=== PATIENT | female | born 1975 | race Hispanic/Latino ===

== ENCOUNTER 2024-03-27 07:01 | Inpatient (IN) | payer BC ==
[2024-03-27] MEDS ORDERED: Heparin 5,000 UNITS/ML VIAL ONE (08:14)
[2024-03-27] MEDS ORDERED: Sodium Chloride 0.9% 100 ML ONE (08:15)
[2024-03-27] MEDS ORDERED: CEFAZOLIN 2 GM VIAL ONE (08:15)
[2024-03-27] MEDS ORDERED: Scopolamine 1 mg/72 hour Patch ONE (08:52)
[2024-03-27] MEDS ORDERED: EPINEPHrine 1 MG/ML VIAL ONE (09:05)
[2024-03-27] MEDS ORDERED: Bupivacaine 0.25% HCL 30 ML VIAL ONE (09:05)
[2024-03-27] MEDS ORDERED: Ondansetron PF 4 MG/2 ML Vial ONE (09:23)
[2024-03-27] MEDS ORDERED: fentaNYL PF 100 MCG/2 ML SYRINGE ONE (09:23)
[2024-03-27] MEDS ORDERED: Lidocaine 1% PF 5 ML VIAL ONE (09:23)
[2024-03-27] MEDS ORDERED: PROPOFOL 20 ML ONE (09:23)
[2024-03-27] MEDS ORDERED: HYDROmorphone 2 MG/ML VIAL ONE (09:23)
[2024-03-27] MEDS ORDERED: Rocuronium Bromide 10 MG/ML (10ML VIAL) ONE (09:23)
[2024-03-27] MEDS ORDERED: Midazolam HCl 2 mg/2 ml Vial ONE (09:24)
[2024-03-27] MEDS ORDERED: PHENYLEPHRINE-NS 100 MCG/ML 10 ML SYRINGE ONE (09:45)
[2024-03-27] MEDS ORDERED: Dexamethasone 20 MG/5 ML VIAL ONE (09:48)
[2024-03-27] MEDS ORDERED: Labetalol HCl 100 MG/20 ML VIAL ONE ×2 (09:48→10:04)
[2024-03-27] MEDS ORDERED: SUGAMMADEX SODIUM 200 MG/2 ML VIAL ONE (10:00)
[2024-03-27] MEDS ORDERED: Glucagon 1 MG/ML KIT IM PRN (10:35)
[2024-03-27] MEDS ORDERED: Promethazine HCl 25 MG/ML VIAL IM PRN ×2 (10:35→11:00)
[2024-03-27] MEDS ORDERED: hydrALAZINE 20 MG/ML VIAL SLOW IVP PRN (10:35)
[2024-03-27] MEDS ORDERED: Dextrose 5% in Water 1,000 ML IV PRN (10:35)
[2024-03-27] MEDS ORDERED: Ondansetron PF 4 MG/2 ML Vial IVP PRN ×2 (10:35→10:47)
[2024-03-27] MEDS ORDERED: Ipratropium/Albuterol 3 ML NEB NEB PRN (10:35)
[2024-03-27] MEDS ORDERED: diphenhydrAMINE 50 MG/ML VIAL IVP PRN ×2 (10:35→10:47)
[2024-03-27] MEDS ORDERED: Dextrose 50% Abboject 50 ML SYRINGE SLOW IVP PRN (10:35)
[2024-03-27] MEDS ORDERED: FENTANYL 500 MCG/10 ML VIAL 2,000 MCG in Sodium Chloride 0.9% 60 ML IV PRN (10:47)
[2024-03-27] MEDS ORDERED: diphenhydrAMINE 50 MG/ML VIAL IM PRN (10:47)
[2024-03-27] MEDS ORDERED: diphenhydrAMINE 25 MG CAP PO PRN (10:47)
[2024-03-27] MEDS ORDERED: Ondansetron HCl/PF 4 MG/2 ML Vial IVP PRN (10:47)
[2024-03-27] MEDS ORDERED: Naloxone HCl 0.4 mg/ml Vial IV PRN (10:47)
[2024-03-27] MEDS ORDERED: HYDROmorphone 2 MG/ML VIAL SLOW IVP PRN (11:00)
[2024-03-27] MEDS ORDERED: ACTIVE PCA FS PRN (11:00)
[2024-03-27] MEDS: 1/2 NS w/Potassium 20 mEq 1,000 ML IV SCH (14:53)
[2024-03-27 15:34] VITALS: BMI 38.3
[2024-03-27] MEDS: CEFAZOLIN 2 GM in Sodium Chloride 0.9% 100 ML IVPB SCH (15:48)
[2024-03-27] MEDS: Insulin Lispro 100 UNIT/ML 10 ML VIAL SC PRN (17:38)
[2024-03-27] MEDS: Atorvastatin Calcium 40 MG TAB PO SCH (21:02)
[2024-03-27] MEDS: Insulin Glargine 30 UNITS/0.3 ML VIAL SC SCH (21:02)
[2024-03-28 05:40] LABS: #Basophils Less than 0.03 10x3/uL (0.0-0.2); #Eosinphils Less than 0.03 10x3/uL (0.0-0.7); %Basophils 0.1 % (0.0-1.0); %Lymphocytes 10.2 % (21.0-51.0); %Neutrophils 85.3 % (42.0-75.0); Hematocrit 41.3 % (36.0-47.0); Hemoglobin 14.7 g/dL (12.0-16.0); Mean Corpuscular HGB CONC 35.6 g/dL (32.0-36.0); Mean Corpuscular Hemoglobin 30.2 pg (27.0-31.0); Mean Platelet Volume 12.1 fL (7.4-10.4); Platelet Count 261 10x3/uL (130-400); RBC Distribution Width 11.9 % (11.5-14.5); Red Blood Cell (RBC) Count 4.86 mill/uL (4.20-5.40)
[2024-03-28 05:54] LABS: Anion Gap 12 mmol/L (10-20); BUN (Urea Nitrogen) 15 mg/dL (7.0-18.7); Calc. Creatinine Clearance 113 mL/min (70-130); Carbon Dioxide 24 mmol/L (22-29); Chloride 103 mmol/L (98-107); Estimated GFR 87; Glucose 271 mg/dL (70-105); Potassium 4.1 mmol/L (3.5-5.1); Sodium 135 mmol/L (136-145)
[2024-03-28] MEDS ORDERED: Hydrocodone-Acetamin 15 ML UDCUP PO PRN (06:05)
[2024-03-28] MEDS: Losartan 25 MG TAB PO SCH (09:44)
[2024-03-28] MEDS: Hydrochlorothiazide 25 MG TAB PO SCH (09:45)
[2024-03-28] MEDS: Pantoprazole 40 MG VIAL IVP SCH (09:45)
[2024-03-28] MEDS: Enoxaparin 40 MG (0.4 mL) SYRINGE SC SCH (09:45)
[2024-03-28] MEDS: Amlodipine 10 MG TAB PO SCH (09:45)
[2024-03-28] MEDS: Insulin Glargine 30 UNITS/0.3 ML VIAL SC SCH (09:46)
[2024-03-28 12:13] VITALS: BP 153/84; TEMP 98.3
== END 2024-03-28 12:36 | disposition home or self-care (01) | DRG 621 ==
LOC: SDC 07:01 → SURG A 12:31
PROVIDERS: ADMIT Surgery; ATTEND Surgery
PROC: 0DB64Z3 Excision of Stomach, Percutaneous Endoscopic Approach, Vertical (ICD-10-PCS; principal; 2024-03-27)
PROC: 8E0W4CZ Robotic Assisted Procedure of Trunk Region, Percutaneous Endoscopic Approach (ICD-10-PCS; 2024-03-27)
PROC: 3E033XZ Introduction of Vasopressor into Peripheral Vein, Percutaneous Approach (ICD-10-PCS; 2024-03-27)
DX: E66.01 Morbid (severe) obesity due to excess calories (principal); E11.9 Type 2 diabetes mellitus without complications; R03.0 Elevated blood-pressure reading, without diagnosis of hypertension; Z90.710 Acquired absence of both cervix and uterus; Z98.890 Other specified postprocedural states; Z87.81 Personal history of (healed) traumatic fracture; Z68.38 Body mass index [BMI] 38.0-38.9, adult
CPT/HCPCS: 36415; 36416; 80048; 85025; 88307; 94760; J0171; J0665; J1100; J1170; J1644; J1650; J1815; J2250; J2405; J2470; J2704; J3010; J3480